=== PATIENT | male | born 1950 | race Caucasian/White ===

== ENCOUNTER 2017-01-15 07:06 | Observation (INO) | payer BC ==
[2017-01-15] MEDS ORDERED: Diazepam TAB(*) 5 MG ONE (07:37)
[2017-01-15 07:41] LABS: Hematocrit 48 % (42-52); Hemoglobin 16.3 g/dl (14.0-18.0); Mean Corpuscular HGB Conc 34 g/dl (31-36); Mean Corpuscular Hemoglobin 31 pg (27-31); Mean Corpuscular Volume 91 fL (80-94); Mean Platelet Volume 9 um3 (7.4-10.4); Red Blood Count 5.31 10^6/ul (4.0-5.4); Red Cell Distribution Width 13 % (10.5-15); White Blood Count 7.9 10^3/ul (3.5-10.8)
[2017-01-15] MEDS ORDERED: ceFAZolin 2 GM PREMIX (*) 100 ML IVPB ONE (08:00)
[2017-01-15] MEDS ORDERED: Lidocaine 1% INJ* 10 MG/ML 30 ML SDV ONE ×2 (08:21→09:00)
[2017-01-15] MEDS ORDERED: Heparin 2 UNITS/ML IVPREMIX* 0 ML IV ONE (08:21)
[2017-01-15] MEDS ORDERED: Iohexol 300 (CONTRAST) 10 ML SDV ONE (08:21)
[2017-01-15] MEDS ORDERED: fentaNYL* 50 MCG/ML 2 ML VIAL (100 MCG VIAL) ONE (08:39)
[2017-01-15] MEDS ORDERED: Midazolam* 1 MG/ML 5 ML VIAL (5 MG) ONE ×2 (08:39→08:54)
[2017-01-15] MEDS ORDERED: Ondansetron INJ* 2 MG/ML VIAL ONE ×2 (09:10→09:38)
[2017-01-15] MEDS ORDERED: Ondansetron INJ* 2 MG/ML VIAL IV PRN (10:13)
--- NOTE | 2017-01-15 11:30 | RAD ---
Indication: Post cardiac pacemaker placement. Comparison: No relevant prior exams available on [place] [facility] [place]. Technique: Upright AP 1110 hours Report: Leads of the newly placed LEFT chest wall pacemaker device extend to the level of the RIGHT atrium and RIGHT ventricle. Negative for pneumothorax. Interval linear subsegmental atelectasis at the LEFT lower lung zone. The lungs and pleural spaces are otherwise clear. Negative for cardiomegaly. Unremarkable central pulmonary vasculature. IMPRESSION: Negative for pneumothorax or pulmonary edema post pacemaker placement.
[2017-01-15] MEDS: [UNRECOGNIZED DRUG - OTHER] PO SCH ×2 (14:29→21:04)
[2017-01-15] MEDS: SOD PO SCH ×2 (14:29→21:04)
[2017-01-15] MEDS: ceFAZolin 500 MG VIAL(*) 500 MG in NS 0.9% 50 ML* 50 ML IVPB SCH ×2 (16:09→23:39)
[2017-01-15] MEDS ORDERED: amLODIPine TAB* 5 MG PO SCH (21:00)
--- NOTE | 2017-01-16 07:03 | OP ---
CC: Dr. English; Dr. Kaveh Morgan OPERATIVE NOTE: DATE OF OPERATION: 01/15/17 DATE OF : 52 SURGEON: Kelly Cochran MD. ANESTHESIA: MAC. PRE-OP DIAGNOSIS: Sick sinus syndrome. POST-OP DIAGNOSIS: Sick sinus syndrome. OPERATIVE PROCEDURE: Pacemaker implantation. COMPLICATIONS: Nausea and vomiting. ESTIMATED BLOOD LOSS: Less than 1 cc. INDICATIONS: The indications, risks, and benefits of the procedure were discussed in depth in the o ffice with the patient's and again this morning. He was amenable to proceeding. DESCRIPTION OF PROCEDURE: The left subclavian fossa was prepped and draped in the usual sterile fas hion and a time-out procedure was called. Following this, the patient received 30 cc total of 1% lidocaine in addition to 5 mg of Versed and 5 0 mcg of fentanyl for sedation. 10 cc of radiopaque dye was injected in the left upper extremity outlining the left axillary and lef t subclavian vein. Following this, local lidocaine was infused, and using Bovie and blunt dissection , a 2.5 cm incision was made and extended to the level of the muscle. Additional lidocaine was infu sed medially and inferiorly, and using blunt dissection, a small pocket was fashioned. Following this, using a modified Seldinger technique and fluoroscopic guidance, the left subclavian vein was cannulated and a guidewire inserted with fluoroscopic guidance, and the procedure was repea rick with a second guidewire. Using an introducer technique, the right ventricular lead was guided to the right ventricular apex a nd actively fixed in place. Pacing and sensing thresholds were found to be good. Using the second guidewire and an introducer, the right atrial lead was guided into the right atrial appendage, activ jennifer fixed in place. Pacing and sensing thresholds were good. The leads were then sutured to the pocket using 0 silk suture. The patient had been nauseated twice by this time and received Zofran 4 mg IV push for a second time. The pocket was then copiously irr igated. The incision was closed with 2 layers of absorbable suture, 2-0 followed by 4-0, followed b y faina and external dressing. FINDINGS: The system is an MRI compatible system. The device is a [employer] A2DR01, serial number [id number]. The atrial lead is a Medtronic model 5076-52, serial number [id number]. The right ventricular lead is a Medtronic Model 5076-58, serial number [id number]. In the atrium, P-waves sensed at 3.6 millivolts with an atrial lead impedance of 894 ohms and then a trial pacing threshold of 1.2 volts at 0.5 milliseconds. In the ventricle, the R-waves were sensed at 9.4 millivolts and ventricular lead impedance 985 ohms and ventricular pacing threshold 0.7 volts at 0.5 milliseconds. At the time of transfer, the patient was hemodynamically stable but still nauseated (presumed sensit ivity to fentanyl). [id number]/[facility] #: [id number]
[2017-01-16 07:52] VITALS: BP 154/94
--- NOTE | 2017-01-16 08:03 | RAD ---
INDICATION: Cardiac pacemaker implant COMPARISON: January 15, 2017 TECHNIQUE: PA and lateral dual-energy views were obtained. FINDINGS: Bones/Soft Tissues: There are no acute bony findings. There is recent placement of left-sided cardiac pacemaker, unchanged. Cardiomediastinal: The cardiomediastinal silhouette is normal. There is no vascular congestion. Lungs: There are no infiltrates. There is no pneumothorax. Pleura: There are no pleural effusions. Other: None IMPRESSION: CARDIAC PACEMAKER. NO ACTIVE DISEASE.
[2017-01-16] MEDS: [UNRECOGNIZED DRUG - OTHER] PO SCH (08:13)
[2017-01-16] MEDS: SOD PO SCH (08:13)
[2017-01-16] MEDS: ceFAZolin 500 MG VIAL(*) 500 MG in NS 0.9% 50 ML* 50 ML IVPB SCH (08:13)
[2017-01-16] MEDS ORDERED: Lisinopril TAB* 10 MG PO SCH (09:00)
[2017-01-16] MEDS ORDERED: COD LIVER OIL PO SCH (09:00)
--- NOTE | 2017-01-29 12:08 | DS ---
CC: Dr. Kavhe Morgan; Dr. English DISCHARGE SUMMARY: DATE OF ADMISSION: DATE OF DISCHARGE: 01/16/17 HOSPITAL COURSE: Mr. Higgins is a 66-year-old gentleman admitted for elective pacemaker implantatio n for sick sinus syndrome. The patient has had progressive episodes where he would feel like he was going to lose his balance, sort of woozy and workup and evaluation with event monitors revealed evidence of sick sinus syndrome with up to 10-second pauses as well as paroxysmal atrial fibrillation. I had seen the patient in the office. The indications, risks, and benefits of the pacemaker were ex plained. He was amenable to proceeding. He had been off his anticoagulation for his AFib for over 2 days. The patient underwent dual-chamber pacemaker implantation on 01/15/2017 with the Medtronic MRI evelina tible device without complication. His chest x-rays the day of and the day after the procedure on 01/16 showed good lead placement and no evidence of pneumothorax or other abnormalities. The patient's pacemaker interrogation the day after the implant confirmed his Medtronic device. He was programmed in AAIR/DDDR with a low rate of 60 beats a minute. His P waves were sensed at 5.5 mi llivolts with an atrial lead impedance of 555 ohms and an atrial pacing threshold of 0.5 volts at 0. 4 milliseconds. R waves were sensed at 12.9 millivolts with a ventricular lead impedance of 570 ohm s and an RV pacing threshold of 0.5 volts at 0.4 milliseconds. He was in normal sinus rhythm at the time of discharge. PHYSICAL EXAMINATION: His exam showed blood pressure was 154/94, pulse was 72, afebrile, and oxygen saturation 95%. Lungs were clear with good effort. No wheezes, rales, or rhonchi. Coronary: S1, S2, regular. Pacer site in the left subclavian fossa intact and unremarkable. No evidence of infe ction, hematoma, or ecchymosis. The patient was discharged with verbal and written instructions on pacemaker care and he is to follo w up in the office in 1 week. DISCHARGE MEDICATIONS: He was discharged on the following medications: 1. Keflex 500 mg t.i.d. 2. Amlodipine 10 mg a day. 3. Rocaltrol 0.25 mcg 2 tabs daily. 4. Cod liver oil 2 caps daily. 5. Lisinopril 20 mg a day. 6. Metoprolol ER 25 mg a day. 7. Potassium phosphate monobasic 1 tab t.i.d. 8. Xarelto 20 mg a day. PAST MEDICAL HISTORY/PROBLEM LIST: Includes: 1. Sick sinus syndrome. 2. Paroxysmal atrial fibrillation. 3. Glomerulonephritis. 4. Hyperlipidemia. 5. Hypertension. 6. Obesity. [id number]/[facility] #: [id number]
== END 2017-01-16 11:00 | disposition home or self-care (01) ==
LOC: CHICATH 07:06 → MEDTELE 10:04
PROVIDERS: ADMIT Specialist; ATTEND Specialist
DX: I49.5 Sick sinus syndrome (principal); R42 Dizziness and giddiness; I48.0 Paroxysmal atrial fibrillation; Z79.01 Long term (current) use of anticoagulants; I10 Essential (primary) hypertension; I51.7 Cardiomegaly
CPT/HCPCS: 33208; 36415; 71010; 71020; 85025; 93005; 96374; 99156; 99157; A9270-GY; C1785; C1898; G0378; J0690; J1644; J2001; J2250; J2405; J3010; Q9967